=== PATIENT | male | born 1955 | race Two or more races ===

== ENCOUNTER 2019-07-26 09:59 | Inpatient (IN) | payer MEDICARE, OTHER ==
[2019-07-26 11:00] VITALS: BMI 25.7
--- NOTE | 2019-07-26 11:42 | HP ---
CIWA Score Nausea/Vomitin Muscle Tremors: 4-Moderate,w/Arms Extend Anxiety: 3 Agitation: 1-Slight > Activity Paroxysmal Sweats: No Perspiration Orientation: 1-Uncertain about Date Tacttile Disturbances: 1-Very Mild Itch/Numbness Auditory Disturbances: 1-Very Mild Visual Disturbances: 1-Very Mild Sensitivity Headache: 2-Mild CIWA-Ar Total Score: 16 - Admission Criteria OASAS Guidelines: Admission for Medically Managed Detox: Requires at least one of the followin. CIWA greater than 12 2. Seizures within the past 24 hours 3. Delirium tremens within the past 24 hours 4. Hallucinations within the past 24 hours 5. Acute intervention needed for co occurring medical disorder 6. Acute intervention needed for co occurring psychiatric disorder 7. Severe withdrawal that cannot be handled at a lower level of care (continued vomiting, continued diarrhea, abnormal vital signs) requiring intravenous medication and/or fluids 8. Patient presents the following: CIWA greater than 12 Admission Criteria Met: Admission criteria met Admitting History and Physical - Admission History Source: Patient - Past Medical History Cardiovascular: Yes: HTN, Hyperlipdemia Renal/: Yes: BPH Psych: Yes: Addictions, Depression - Past Surgical History Past Surgical History: Yes: Hernia Repair - Smoking History Smoking history: Current every day smoker Have you smoked in the past 12 months: Yes Aproximately how many cigarettes per day: 10 - Alcohol/Substance Use Hx Alcohol Use: Yes History of Substance Use: reports: Heroin - Social History Usual Living Arrangement: Yes: Alone ADL: Support Services Admission ROS S - HPI Chief Complaint: I can't handle the drinking anymore, I want to stop Allergies/Adverse Reactions: Allergies Allergy/AdvReac Type Severity Reaction Status Date / Time fish derived [Fish derived] Allergy Mild Hives Verified 07/26/19 10:52 [place] Allergy Mild Uncoded 09/20/11 20:41 History of Present Illness: 64 yo gentleman here for detox from alcohol and opiates - noted patient on suboxone program which he has been on for over a year - he states he did not rock picker his Rx two days ago - states he last used suboxone six days ago - was using heroin instead - will put him back on suboxone starting tomorrow and detox off alcohol. Denies overdose but has history of alcohol related seizures and black outs. He is on disability for depression - no meds currently and has not seen psych for over a year - states he does not want/need to see psych while here but aware he can request to if he changes his mind - not feeling suicidal. Lives alone in apartment. No emergency room visits recently. Starts drinking first thing when he wakes up, gets shakey when he tries to stop. Last time here in 2011 - states he did well for several years but relapsed about two years ago - was recommended by his program to come in for detox. [place]: Others' Prescriptions Patient Name: Josh Gibson Date: 1955 Address: [address] [place] [address] Sex: Female Rx Written Rx Dispensed Drug Quantity Days Supply Prescriber Name 07/09/2019 07/11/2019 buprenorphine-naloxone 8-2 mg sl film 42 14 Flores Em MD 06/24/2019 06/24/2019 buprenorphine-naloxone 8-2 mg sl film 42 14 Flores Em MD 06/16/2019 06/16/2019 buprenorphine-naloxone 8-2 mg sl film 21 7 Flores Em MD 05/30/2019 06/03/2019 buprenorphine-naloxone 8-2 mg sl film 45 15 Diana Perez MD 05/22/2019 05/22/2019 buprenorphine-naloxone 8-2 mg sl film 45 15 Flores Em MD 05/08/2019 05/08/2019 buprenorphine-naloxone 8-2 mg sl film 45 15 Diana Perez MD 04/22/2019 04/22/2019 buprenorphine-naloxone 8-2 mg sl film 45 15 Diana Perez MD 04/03/2019 04/05/2019 buprenorphine-naloxone 8-2 mg sl film 45 15 Flores Em MD 03/21/2019 03/24/2019 buprenorphine-naloxone 8-2 mg sl film 45 15 Flores Em MD 02/20/2019 02/24/2019 buprenorphine-naloxone 8-2 mg sl film 90 30 Flores Em MD 01/27/2019 01/27/2019 buprenorphine-naloxone 8-2 mg sl film 90 30 Flores Em MD 12/20/2018 12/27/2018 buprenorphine-naloxone 8-2 mg sl film 90 30 Flores Em L MD 10/28/2018 11/29/2018 buprenorphine-naloxone 8-2 mg sl film 90 30 [place]Flores MD 10/28/2018 11/02/2018 buprenorphine-naloxone 8-2 mg sl film 90 30 [place]ores MD 10/03/2018 10/04/2018 suboxone 8 mg-2 mg sl film 90 30 [place]ores MD 09/06/2018 09/06/2018 suboxone 8 mg-2 mg sl film 90 30 [place]ores MD 09/04/2018 09/04/2018 suboxone 8 mg-2 mg sl film 5 2 [place]ores MD 08/28/2018 08/28/2018 suboxone 8 mg-2 mg sl film 20 7 [place]Flores MD 07/04/2018 07/31/2018 suboxone 8 mg-2 mg sl film 90 30 RingstadFlores MD - Ebola screening Have you traveled outside of the country in the last 21 days: No (N) Have you had contact with anyone from an Ebola affected area: No Do you have a fever: No - Review of Systems Constitutional: Loss of Appetite, Malaise, Changes in sleep, Weakness EENT: reports: Blurred Vision Respiratory: reports: No Symptoms reported Cardiac: reports: No Symptoms Reported GI: reports: Nausea, Poor Appetite, Abdominal cramping : reports: Frequency Musculoskeletal: reports: Back Pain, Muscle Pain Integumentary: reports: Dryness Neuro: reports: Headache, Numbness, Tremors, Weakness Endocrine: reports: No Symptoms Reported Hematology: reports: No Symptoms Reported Psychiatric: reports: Judgement Intact, Mood/Affect Appropiate, Orientated x3, Anxious Other Systems: Reviewed and Negative Patient History - Patient Medical History Hx Asthma: No Hx Chronic Obstructive Pulmonary Disease (COPD): No Hx Cancer: No Hx Cardiac Disorders: No Hx Congestive Heart Failure: No Hx Hypertension: Yes (on meds) Hx Hypercholesterolemia: Yes (on meds) Hx Pacemaker: No HX Cerebrovascular Accident: No Hx Seizures: Yes (Pt has a hx of etoh/drug related seizures. Last 2010) Hx Diabetes: No Hx Gastrointestinal Disorders: No Hx Liver Disease: Yes (hep c treated) Hx Genitourinary Disorders: Yes (BPH) Hx Sexually Transmitted Disorders: No Hx Renal Disease (ESRD): No Hx Thyroid Disease: No Hx Human Immunodeficiency Virus (HIV): No Hx Hepatitis C: Yes (treated years ago with interferon) Hx Depression: Yes (ANXIETY AND DEPRESSION, hospitalized years ago) Hx Suicide Attempt: No Hx Bipolar Disorder: No Hx Schizophrenia: No - Patient Surgical History Past Surgical History: Yes Hx Neurologic Surgery: No Hx Cataract Extraction: No Hx Cardiac Surgery: No Hx Lung Surgery: No Hx Breast Surgery: No Hx Breast Biopsy: No Hx Abdominal Surgery: No Hx Appendectomy: No Hx Cholecystectomy: No Hx Genitourinary Surgery: No Hx Section: No Hx Orthopedic Surgery: No Other Surgical History: R inguinal hernia repair in 2005 Anesthesia Reaction: No - PPD History Previous Implant?: Yes Documented Results: Negative w/proof Implanted On Prior [facility] Admission?: Yes Date: 09/20/11 PPD to be Administered?: Yes - Reproductive History Patient is a Female of Child Bearing Age (11 -55 yrs old): No - Smoking Cessation Smoking history: Current every day smoker Have you smoked in the past 12 months: Yes Aproximately how many cigarettes per day: 10 Hx Chewing Tobacco Use: No Initiated information on smoking cessation: Yes 'Breaking Loose' booklet given: 07/26/19 (give on floor) - Substance & Tx. History Hx Alcohol Use: Yes Hx Substance Use: Yes Substance Use Type: Alcohol, Opiates Hx Substance Use Treatment: Yes (detox, suboxone program) - Substances abused Alcohol Substance route: Oral Frequency: Daily Amount used: 1.5 pint of bacardi mixed with 1 pint vodka Age of first use: 25 Date of last use: 07/25/19 Heroin Substance route: Inhalation Frequency: Daily Amount used: 1 bundle (10 bags) daily Age of first use: 25 Date of last use: 07/25/19 Admission Physical Exam [facility] - Vital Signs Vital Signs: Vital Signs - 24 hr 07/26/19 10:46 Temperature 97.4 F L Pulse Rate 60 Respiratory 18 Rate Blood Pressure 140/97 - Physical General Appearance: Yes: Nourished, Appropriately Dressed, Moderate Distress, Tremorous, Anxious HEENTM: Yes: EOMI, Hearing grossly Normal, Normocephalic, Normal Voice, Pharynx Normal, Other (upper and lower dentures) Respiratory: Yes: Normal Breath Sounds, No Respiratory Distress Neck: Yes: No masses,lesions,Nodules, Supple Breast: Yes: Breast Exam Deferred Cardiology: Yes: Regular Rhythm, Regular Rate Abdominal: Yes: Soft Genitourinary: Yes: Frequency, Nocturia Back: Yes: Normal Inspection Musculoskeletal: Yes: Gait Steady, Back pain Extremities: Yes: Normal Inspection, Normal Range of Motion, Tremors Neurological: Yes: Fully Oriented, Alert, Normal Mood/Affect, Normal Response, Numbness Integumentary: Yes: Normal Color, Dry, Warm Lymphatic: Yes: Within Normal Limits - Diagnostic (1) Alcohol dependence with withdrawal, uncomplicated Current Visit: Yes Status: Chronic (2) Opioid dependence, uncomplicated Current Visit: Yes Status: Chronic Comment: on suboxone 8mg tid with Positive Directions (3) Hypercholesterolemia Current Visit: Yes Status: Chronic (4) BPH (benign prostatic hyperplasia) Current Visit: Yes Status: Chronic Qualifiers: Lower urinary tract symptom presence: symptoms present Lower urinary tract symptom detail: nocturia Qualified Code(s): N40.1 - Benign prostatic hyperplasia with lower urinary tract symptoms; R35.1 - Nocturia (5) Hepatitis C virus infection cured after antiviral drug therapy Current Visit: Yes Status: Chronic (6) Nicotine dependence Current Visit: Yes Status: Acute Qualifiers: Nicotine product type: cigarettes Substance use status: uncomplicated Qualified Code(s): F17.210 - Nicotine dependence, cigarettes, uncomplicated (7) HTN (hypertension) Current Visit: Yes Status: Chronic Qualifiers: Hypertension type: essential hypertension Qualified Code(s): I10 - Essential (primary) hypertension (8) History of seizure Current Visit: Yes Status: Chronic Cleared for Admission S - Detox or Rehab [facility] Level of Care: Medically Managed Detox Regimen/Protocol: Librium Breathalyzer - Breathalyzer Breathalyzer: 0 Urine Drug Screen - Test Device Lot number: [id number] Expiration date: 03/05/21 - Control Is test valid?: Yes - Results Drug screen NEGATIVE: No Urine drug screen results: FEN-Fentanyl, MOP-Opiates Inpatient Rehab Admission - Rehab Decision to Admit Inpatient rehab admission?: No
[2019-07-26] MEDS ORDERED: MAGNESIUM CITRATE 300 ML BOTTLE PO PRN (12:04)
[2019-07-26] MEDS ORDERED: METHOCARBAMOL 500 MG TABLET PO PRN (12:04)
[2019-07-26] MEDS ORDERED: MAGNESIUM HYDROX 2400MG/30ML ORAL SUSPENSION 30 ML CUP PO PRN (12:04)
[2019-07-26] MEDS ORDERED: MENTHOL/PHENOL 1 EACH UD MM PRN (12:04)
[2019-07-26] MEDS ORDERED: BISMUTH SUBSALICYLATE 524 MG/30 ML UD PO PRN (12:04)
[2019-07-26] MEDS ORDERED: hydrOXYzine PAMOATE 25 MG CAPSULE (FP) PO PRN (12:04)
[2019-07-26] MEDS ORDERED: chlordiazePOXIDE HCL 25 MG CAPSULE PO ONE (12:04)
[2019-07-26] MEDS ORDERED: ACETAMINOPHEN 325 MG TABLET (FP) PO PRN ×2 (12:04)
[2019-07-26] MEDS ORDERED: MAG HYDROX/AL HYDROX/SIMETH 30 ML UNIT-DOSE CUP PO PRN (12:04)
[2019-07-26] MEDS ORDERED: chlordiazePOXIDE HCL 25 MG CAPSULE PO PRN (12:04)
[2019-07-26] MEDS ORDERED: IBUPROFEN 400 MG TABLET (FP) PO PRN (12:04)
[2019-07-26] MEDS ORDERED: LISINOPRIL 20 MG TABLET (FP) PO SCH (12:15)
[2019-07-26] MEDS ORDERED: CHLORTHALIDONE 25 MG TABLET PO SCH (12:15)
[2019-07-26] MEDS: TAMSULOSIN HCL 0.4 MG CAP PO SCH (13:37)
[2019-07-26] MEDS: ASPIRIN 81 MG CHEWABLE TABLETS PO SCH (13:37)
[2019-07-26] MEDS: NICOTINE 21 MG/24 HOURS TOPICAL PATCH TD SCH (13:42)
[2019-07-26] MEDS: chlordiazePOXIDE HCL 25 MG CAPSULE PO SCH ×2 (18:23→22:20)
[2019-07-26] MEDS: BUPRENORPHINE/NALOXONE 8 MG/2 MG FILM PACKET SL SCH (18:26)
[2019-07-26] MEDS: MELATONIN 5 MG TABLETS PO PRN (22:18)
[2019-07-26] MEDS: THIAMINE HCL 100 MG TABLET (FP) PO SCH (22:19)
[2019-07-26] MEDS: ATORVASTATIN CA 40 MG TABLET (FP) PO SCH (22:19)
[2019-07-27] MEDS: chlordiazePOXIDE HCL 25 MG CAPSULE PO SCH ×4 (05:52→22:25)
[2019-07-27] MEDS: BUPRENORPHINE/NALOXONE 8 MG/2 MG FILM PACKET SL SCH ×3 (06:24→17:57)
--- NOTE | 2019-07-27 09:34 | PN ---
S CIWA - CIWA Score Nausea/Vomitin-Mild Nausea/No Vomiting Muscle Tremors: 4-Moderate,w/Arms Extend Anxiety: 3 Agitation: 2 Paroxysmal Sweats: 2 Orientation: 0-Oriented Tacttile Disturbances: 0-None Auditory Disturbances: 1-Very Mild Visual Disturbances: 0-None Headache: 2-Mild CIWA-Ar Total Score: 15 S Progress Note (SOAP) Subjective: 64 years old male admitted on 07/26/19 for alcohol withdrawal sx management treating with librium detox regimen received suboxone 8-2mg sl today feeling better long history of hypertension taking hygroton 25mg po daily bp elevation upon admission resume antihypertensive medications lisinopril 20 mg po od increases lisinopril to 20 mg po bid and continues pb monitoring Objective: 07/27/19 09:43 Vital Signs Temperature 96.8 F L 07/27/19 09:09 Pulse Rate 67 07/27/19 09:09 Respiratory Rate 16 07/27/19 09:09 Blood Pressure 165/101 H 07/27/19 09:09 O2 Sat by Pulse Oximetry (%) 07/27/19 09:46 lab pending 07/27/19 09:46 bp elevation lisinopril 20 mg po bid Assessment: 07/27/19 09:47 Vital Signs Temperature 96.8 F L 07/27/19 09:09 Pulse Rate 67 07/27/19 09:09 Respiratory Rate 16 07/27/19 09:09 Blood Pressure 165/101 H 07/27/19 09:09 O2 Sat by Pulse Oximetry (%) Plan: librium regimen
[2019-07-27] MEDS ORDERED: CHLORTHALIDONE 25 MG TABLET PO SCH ×2 (09:39→10:00)
[2019-07-27] MEDS: TAMSULOSIN HCL 0.4 MG CAP PO SCH (10:13)
[2019-07-27] MEDS: ASPIRIN 81 MG CHEWABLE TABLETS PO SCH (10:13)
[2019-07-27] MEDS: LISINOPRIL 20 MG TABLET (FP) PO SCH ×2 (10:13→22:25)
[2019-07-27] MEDS: PRENATAL VITAMINS W/ FOLIC ACID TABLET (FP) PO SCH (10:13)
[2019-07-27] MEDS: NICOTINE 21 MG/24 HOURS TOPICAL PATCH TD SCH (10:14)
[2019-07-27 10:41] LABS: HEMATOCRIT 43.8 % (35.4-49); HEMOGLOBIN 14.8 GM/dL (11.7-16.9); MCHC 33.8 g/dl (32.0-35.9); MEAN CELL VOLUME 94.6 fl (80-96); MEAN PLT VOLUME 8.7 fl (7.5-11.1); PLATELET COUNT 149 K/MM3 (134-434); RBC 4.63 M/mm3 (4.00-5.60); WHITE BLOOD COUNT 5.1 K/mm3 (4.0-10.0)
[2019-07-27 10:52] LABS: ALBUMIN 3.9 g/dl (3.4-5.0); BILIRUBIN,TOTAL 0.8 mg/dL (0.2-1); BLOOD UREA NITROGEN 11.9 mg/dL (7-18); CALCIUM 9.6 mg/dL (8.5-10.1); CREATININE 0.8 mg/dL (0.55-1.3); POTASSIUM 4.1 mmol/L (3.5-5.1); TOT PROT 7.8 g/dl (6.4-8.2)
[2019-07-27] MEDS: CHLORTHALIDONE 25 MG TABLET PO SCH (11:03)
--- NOTE | 2019-07-27 18:46 | EKG ---
Test Reason : Blood Pressure : / mmHG Vent. Rate : 054 BPM Atrial Rate : 054 BPM P-R Int : 148 ms QRS Dur : 076 ms QT Int : 480 ms P-R-T Axes : 042 -03 006 degrees QTc Int : 455 ms SINUS BRADYCARDIA POSSIBLE LEFT ATRIAL ENLARGEMENT BORDERLINE ECG NO PREVIOUS ECGS AVAILABLE Confirmed by MARIAMA HUGHES MD ([id number]) on 07/27/2019 6:46:00 PM Referred By: Confirmed By:MARIAMA HUGHES MD
[2019-07-27] MEDS: ATORVASTATIN CA 40 MG TABLET (FP) PO SCH (22:25)
[2019-07-27] MEDS: THIAMINE HCL 100 MG TABLET (FP) PO SCH (22:25)
[2019-07-27] MEDS: MELATONIN 5 MG TABLETS PO PRN (22:26)
[2019-07-28] MEDS: BUPRENORPHINE/NALOXONE 8 MG/2 MG FILM PACKET SL SCH ×2 (02:19→10:45)
[2019-07-28] MEDS: chlordiazePOXIDE HCL 25 MG CAPSULE PO SCH ×2 (05:20→10:08)
[2019-07-28] MEDS ORDERED: BUPRENORPHINE/NALOXONE 8 MG/2 MG FILM PACKET SL SCH ×3 (09:39→14:00)
[2019-07-28] MEDS ORDERED: BUPRENORPHINE/NALOXONE 8 MG/2 MG FILM PACKET SL ONE (10:00)
[2019-07-28] MEDS: LISINOPRIL 20 MG TABLET (FP) PO SCH (10:08)
[2019-07-28] MEDS: PRENATAL VITAMINS W/ FOLIC ACID TABLET (FP) PO SCH (10:08)
[2019-07-28] MEDS: CHLORTHALIDONE 25 MG TABLET PO SCH (10:08)
[2019-07-28] MEDS: TAMSULOSIN HCL 0.4 MG CAP PO SCH (10:08)
[2019-07-28] MEDS: NICOTINE 21 MG/24 HOURS TOPICAL PATCH TD SCH (10:08)
[2019-07-28] MEDS: ASPIRIN 81 MG CHEWABLE TABLETS PO SCH (10:08)
--- NOTE | 2019-07-28 10:33 | PN ---
S CIWA - CIWA Score Nausea/Vomitin-Mild Nausea/No Vomiting Muscle Tremors: 2 Anxiety: 3 Agitation: 2 Paroxysmal Sweats: 2 Orientation: 1-Uncertain about Date (date of week) Tacttile Disturbances: 1-Very Mild Itch/Numbness Auditory Disturbances: 0-None Visual Disturbances: 0-None Headache: 1-Very Mild CIWA-Ar Total Score: 13 BHS Progress Note (SOAP) Subjective: 64 years old male admitted on 07/26/19 for alcohol withdrawal sx management treating with librium detox regimen c/o suboxone standing schedule interrupted sleep change suboxone schedule to q8h begin 0600am Objective: 07/28/19 10:32 Vital Signs Temperature 97.3 F L 07/28/19 09:17 Pulse Rate 78 07/28/19 09:17 Respiratory Rate 18 07/28/19 09:17 Blood Pressure 104/64 07/28/19 09:17 O2 Sat by Pulse Oximetry (%) Laboratory Last Values WBC 5.1 K/mm3 (4.0-10.0) 07/27/19 07:35 RBC 4.63 M/mm3 (4.00-5.60) 07/27/19 07:35 Hgb 14.8 GM/dL (11.7-16.9) 07/27/19 07:35 Hct 43.8 % (35.4-49) D 07/27/19 07:35 MCV 94.6 fl (80-96) 07/27/19 07:35 MCH 32.0 pg (25.7-33.7) 07/27/19 07:35 MCHC 33.8 g/dl (32.0-35.9) 07/27/19 07:35 RDW 14.0 % (11.9-15.9) 07/27/19 07:35 Plt Count 149 K/MM3 (134-434) 07/27/19 07:35 MPV 8.7 fl (7.5-11.1) 07/27/19 07:35 Sodium 138 mmol/L (136-145) 07/27/19 07:35 Potassium 4.1 mmol/L (3.5-5.1) 07/27/19 07:35 Chloride 102 mmol/L (98-107) 07/27/19 07:35 Carbon Dioxide 31 mmol/L (21-32) 07/27/19 07:35 Anion Gap 6 MMOL/L (8-16) L 07/27/19 07:35 BUN 11.9 mg/dL (7-18) 07/27/19 07:35 Creatinine 0.8 mg/dL (0.55-1.3) 07/27/19 07:35 Est GFR (CKD-EPI)AfAm 110.19 07/27/19 07:35 Est GFR (CKD-EPI)NonAf 95.07 07/27/19 07:35 Random Glucose 110 mg/dL (74-106) H 07/27/19 07:35 Calcium 9.6 mg/dL (8.5-10.1) 07/27/19 07:35 Total Bilirubin 0.8 mg/dL (0.2-1) 07/27/19 07:35 AST 19 U/L (15-37) 07/27/19 07:35 ALT 24 U/L (13-61) 07/27/19 07:35 Alkaline Phosphatase 86 U/L (45-117) 07/27/19 07:35 Total Protein 7.8 g/dl (6.4-8.2) 07/27/19 07:35 Albumin 3.9 g/dl (3.4-5.0) 07/27/19 07:35 RPR Titer Nonreactive (NONREACTIVE) 07/27/19 07:35 lab noted Assessment: 07/28/19 10:32 alcohol withdrawal Plan: librium regimen
[2019-07-28 13:06] VITALS: BP 114/70; PULSE 65; TEMP 97.5
--- NOTE | 2019-07-28 15:51 | DS ---
[facility] Detox Discharge Summary Admission Date: 07/26/19 Discharge Date: 07/28/19 - History Present History: Alcohol Dependence Additional Comments: 64 years old male admitted on 07/26/19 for alcohol withdrawal sx management treated with librium detox regimen patient insists to leave the detox unit that his qa automation engineer disappeared and the patient prefers to return home to care for his two dogs patient is alert oriented x 3 speech clearly coherently ambulating steady gait Pertinent Past History: case discussed with the nurse against medical advice is appropriated patient will return to suboxone provider for behavior and psychosocial therapies - Physical Exam Results Vital Signs: Vital Signs Temperature 97.5 F L 07/28/19 13:06 Pulse Rate 65 07/28/19 13:06 Respiratory Rate 18 07/28/19 13:06 Blood Pressure 114/70 07/28/19 13:06 O2 Sat by Pulse Oximetry (%) Pertinent Admission Physical Exam Findings: alcohol withdrawal Laboratory Last Values WBC 5.1 K/mm3 (4.0-10.0) 07/27/19 07:35 RBC 4.63 M/mm3 (4.00-5.60) 07/27/19 07:35 Hgb 14.8 GM/dL (11.7-16.9) 07/27/19 07:35 Hct 43.8 % (35.4-49) D 07/27/19 07:35 MCV 94.6 fl (80-96) 07/27/19 07:35 MCH 32.0 pg (25.7-33.7) 07/27/19 07:35 MCHC 33.8 g/dl (32.0-35.9) 07/27/19 07:35 RDW 14.0 % (11.9-15.9) 07/27/19 07:35 Plt Count 149 K/MM3 (134-434) 07/27/19 07:35 MPV 8.7 fl (7.5-11.1) 07/27/19 07:35 Sodium 138 mmol/L (136-145) 07/27/19 07:35 Potassium 4.1 mmol/L (3.5-5.1) 07/27/19 07:35 Chloride 102 mmol/L (98-107) 07/27/19 07:35 Carbon Dioxide 31 mmol/L (21-32) 07/27/19 07:35 Anion Gap 6 MMOL/L (8-16) L 07/27/19 07:35 BUN 11.9 mg/dL (7-18) 07/27/19 07:35 Creatinine 0.8 mg/dL (0.55-1.3) 07/27/19 07:35 Est GFR (CKD-EPI)AfAm 110.19 07/27/19 07:35 Est GFR (CKD-EPI)NonAf 95.07 07/27/19 07:35 Random Glucose 110 mg/dL (74-106) H 07/27/19 07:35 Calcium 9.6 mg/dL (8.5-10.1) 07/27/19 07:35 Total Bilirubin 0.8 mg/dL (0.2-1) 07/27/19 07:35 AST 19 U/L (15-37) 07/27/19 07:35 ALT 24 U/L (13-61) 07/27/19 07:35 Alkaline Phosphatase 86 U/L (45-117) 07/27/19 07:35 Total Protein 7.8 g/dl (6.4-8.2) 07/27/19 07:35 Albumin 3.9 g/dl (3.4-5.0) 07/27/19 07:35 RPR Titer Nonreactive (NONREACTIVE) 07/27/19 07:35 lab noted - Treatment Hospital Course: Detox Protocol Followed, Discharged Condition Good Patient has Accepted a Re[facility]erral [facility] - Medication Discharge Medications: Ambulatory Orders Aspirin [ASA -] 81 mg PO DAILY 07/26/19 Atorvastatin Ca [Lipitor] 40 mg PO HS 07/26/19 Buprenorphine/Naloxone [Suboxone 8Mg/2Mg Sl Film -] 1 each SL Q8H 07/26/19 Chlorthalidone [Hygroton -] 25 mg PO DAILY 07/26/19 Lisinopril 20 mg PO DAILY 07/26/19 Tamsulosin HCl [Flomax -] 0.4 mg PO DAILY 07/26/19 - Diagnosis (1) Nicotine dependence Current Visit: Yes Status: Acute Qualifiers: Nicotine product type: cigarettes Substance use status: in withdrawal Qualified Code(s): F17.213 - Nicotine dependence, cigarettes, with withdrawal (2) Alcohol dependence with withdrawal, uncomplicated Current Visit: Yes Status: Acute (3) BPH (benign prostatic hyperplasia) Current Visit: Yes Status: Chronic Qualifiers: Lower urinary tract symptom presence: symptoms present Lower urinary tract symptom detail: nocturia Qualified Code(s): N40.1 - Benign prostatic hyperplasia with lower urinary tract symptoms; R35.1 - Nocturia (4) HTN (hypertension) Current Visit: Yes Status: Chronic Qualifiers: Hypertension type: essential hypertension Qualified Code(s): I10 - Essential (primary) hypertension (5) Hepatitis C virus infection cured after antiviral drug therapy Current Visit: Yes Status: Chronic (6) Hypercholesterolemia Current Visit: Yes Status: Chronic - AMA Did Patient Leave Against Medical Advice: Yes
[2019-07-29] MEDS ORDERED: chlordiazePOXIDE HCL 10 MG CAPSULE PO PRN
[2019-07-29] MEDS ORDERED: chlordiazePOXIDE HCL 10 MG CAPSULE PO SCH (05:00)
[2019-07-30] MEDS ORDERED: chlordiazePOXIDE HCL 10 MG CAPSULE PO SCH (05:00)
[2019-07-31] MEDS ORDERED: chlordiazePOXIDE HCL 10 MG CAPSULE PO ONE (05:00)
== END 2019-07-28 15:46 | disposition left against medical advice (07) | DRG 894 ==
LOC: YASAS 09:59 → Y3N 12:22
PROVIDERS: ADMIT Allergy & Immunology; ATTEND Allergy & Immunology
PROC: HZ2ZZZZ Detoxification Services for Substance Abuse Treatment (ICD-10-PCS; principal; 2019-07-26)
DX: F11.23 Opioid dependence with withdrawal (principal); F10.230 Alcohol dependence with withdrawal, uncomplicated; F17.213 Nicotine dependence, cigarettes, with withdrawal; I10 Essential (primary) hypertension; N40.0 Benign prostatic hyperplasia without lower urinary tract symptoms; E78.5 Hyperlipidemia, unspecified; Z86.19 Personal history of other infectious and parasitic diseases; Z91.013 Allergy to seafood; Z91.018 Allergy to other foods; Z86.69 Personal history of other diseases of the nervous system and sense organs
CPT/HCPCS: 36415; 80053; 85027; 86593; 93005; 93010

== ENCOUNTER 2019-10-24 08:02 | Inpatient (IN) | payer MEDICARE, OTHER ==
--- NOTE | 2019-10-24 08:56 | BHS.RME ---
Substance Use & Tx History - Substance Use History Alcohol Substance amount: 2.5 pints vodka Frequency of use: Daily Substance route: Oral Date of Last Use: 10/23/19 (6AM) Opiates (Heroin) Substance amount: 4-5 bags Frequency of use: Daily Substance route: Inhalation (ex: sniffing or snorting) Date of Last Use: 10/24/19 Nicotine Substance amount: 5-6 ciggs Frequency of use: Daily Substance route: Smoking Date of Last Use: 10/24/19 Physical/Psych/Mental Status - Behavior General Behavior: Increased activity (restlessness, agitation) Eye Contact: Normal - Cooperativeness Cooperativeness: Cooperative - Thinking Thought Processes: Tight, Logical, Goal Directed Thought content: Future oriented - Physical Health Problems Is patient presently having any pain?: No Does patient presently have any injuries (include location): No Does patient currently have a fever: No Is patient : No COWS - Scale Resting Pulse: 1= MD 81-100 Sweatin=Flushed/Facial Moisture Restless Observation: 1= Difficult to Sit Still Pupil Size: 1= Pupils >than Normal Bone or Joint Aches: 1= Mild Discomfort Runny Nose/ Eye Tearin= Runny Nose/Eyes GI Upset > 30mins: 3= Vomiting/Diarrhea Tremor Observation: 4= Gross Tremor/Twitching Yawning Observation: 1= 1-2x During Session Anxiety or Irritability: 2=Irritable/Anxious Goose Flesh Skin: 0=Smooth Skin COWS Score: 18 CIWA Nausea/Vomitin-No Nausea/No Vomiting Muscle Tremors: 4-Moderate,w/Arms Extend Anxiety: 6 Agitation: 1-Slight > Activity Paroxysmal Sweats: 4-Forehead w/Sweat Beads Orientation: 0-Oriented Tacttile Disturbances: 0-None Auditory Disturbances: 0-None Visual Disturbances: 1-Very Mild Sensitivity Headache: 2-Mild CIWA-Ar Total Score: 18
[2019-10-24 09:04] VITALS: BMI 26.0
--- NOTE | 2019-10-24 10:08 | HP ---
COWS - Scale Resting Pulse: 1= AR 81-100 Sweatin=Flushed/Facial Moisture Restless Observation: 1= Difficult to Sit Still Pupil Size: 1= Pupils >than Normal Bone or Joint Aches: 1= Mild Discomfort Runny Nose/ Eye Tearin= Runny Nose/Eyes GI Upset > 30mins: 3= Vomiting/Diarrhea Tremor Observation: 4= Gross Tremor/Twitching Yawning Observation: 1= 1-2x During Session Anxiety or Irritability: 2=Irritable/Anxious Goose Flesh Skin: 0=Smooth Skin COWS Score: 18 CIWA Score Nausea/Vomitin-No Nausea/No Vomiting Muscle Tremors: 4-Moderate,w/Arms Extend Anxiety: 6 Agitation: 1-Slight > Activity Paroxysmal Sweats: 4-Forehead w/Sweat Beads Orientation: 0-Oriented Tacttile Disturbances: 0-None Auditory Disturbances: 0-None Visual Disturbances: 1-Very Mild Sensitivity Headache: 2-Mild CIWA-Ar Total Score: 18 - Admission Criteria OASAS Guidelines: Admission for Medically Managed Detox: Requires at least one of the followin. CIWA greater than 12 2. Seizures within the past 24 hours 3. Delirium tremens within the past 24 hours 4. Hallucinations within the past 24 hours 5. Acute intervention needed for co occurring medical disorder 6. Acute intervention needed for co occurring psychiatric disorder 7. Severe withdrawal that cannot be handled at a lower level of care (continued vomiting, continued diarrhea, abnormal vital signs) requiring intravenous medication and/or fluids 8. Admitting History and Physical - Admission Chief Complaint: "I just want to stay clean and go back to my job. I was laid off because of the [place] virus." History of Present Illness: 64 year old male with history of alcohold dependence and opioid dependence. 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 He relapsed after 2 weeks. He is also anxious due to his job loss from being laid off due to the coronavirus. He was also a patient at [facility] on suboxone but said when his car got repossessed his suboxone was in the car. He states he has not taken his suboxone for 2 days. Alcohol: 2.5 pints vodka daily, started at age 23 and last used 10/23/19 at 6AM, so out of his system and breathylyzer negative. 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 Heroin 4-5 bags of heroin intranasally, started at age 28 and last used this morning at 6AM. PMH: HTN Psurg: None Psych: None He is not homeless but has poor recovery environment and is at high risk to relapse due to social circumstances. Urine Tox : has suboxone but residual most likely, but also positive for fentanyl and opioids. He meets criteria for admission to detox. History Source: Patient Limitations to Obtaining History: No Limitations - Past Medical History Cardiovascular: Yes: HTN, Hyperlipdemia Renal/: Yes: BPH Psych: Yes: Addictions, Depression - Past Surgical History Past Surgical History: Yes: Hernia Repair - Smoking History Smoking history: Current every day smoker Have you smoked in the past 12 months: Yes Aproximately how many cigarettes per day: 6 - Alcohol/Substance Use Hx Alcohol Use: Yes (2.5 pints vodka) History of Substance Use: reports: Heroin - Social History Usual Living Arrangement: Yes: Alone Do you think of yourself as: Straight/Heterosexual ADL: Independent Occupation: unemployed, warehouse History of Recent Travel: No Admission [facility] Allergies/Adverse Reactions: Allergies Allergy/AdvReac Type Severity Reaction Status Date / Time fish derived [Fish derived] Allergy Mild Hives Verified 10/24/19 09:12 [place] Allergy Mild Uncoded 10/24/19 09:12 Exam Limitations: No Limitations - Ebola screening Have you traveled outside of the country in the last 21 days: No Have you had contact with anyone from an Ebola affected area: No Have you been sick,other than usual withdrawal symptoms: No Do you have a fever: No - Review of Systems Constitutional: Chills, Loss of Appetite, Unintentional Wgt. Loss EENT: reports: No Symptoms Reported Respiratory: reports: No Symptoms reported Cardiac: reports: No Symptoms Reported GI: reports: No Symptoms Reported, Nausea, Abdominal cramping : reports: No Symptoms Reported Musculoskeletal: reports: No Symptoms Reported Integumentary: reports: No Symptoms Reported Neuro: reports: No Symptoms reported Endocrine: reports: No Symptoms Reported Hematology: reports: No Symptoms Reported Psychiatric: reports: Judgement Intact, Orientated x3, Agitated, Anxious, Depressed Other Systems: Reviewed and Negative Patient History - Patient Medical History Hx Asthma: No Hx Chronic Obstructive Pulmonary Disease (COPD): No Hx Cancer: No Hx Cardiac Disorders: No Hx Congestive Heart Failure: No Hx Hypertension: Yes (HTN- ON MEDS) Hx Hypercholesterolemia: Yes (on meds) Hx Pacemaker: No HX Cerebrovascular Accident: No Hx Seizures: Yes (2010) Hx Diabetes: No Hx Gastrointestinal Disorders: No Hx Liver Disease: Yes (hep c treated) Hx Genitourinary Disorders: No Hx Sexually Transmitted Disorders: No Hx Renal Disease (ESRD): No Hx Thyroid Disease: No Hx Human Immunodeficiency Virus (HIV): No Hx Hepatitis C: Yes (treated years ago with interferon) Hx Depression: No Hx Suicide Attempt: No Hx Bipolar Disorder: No Hx Schizophrenia: No - Patient Surgical History Past Surgical History: Yes Hx Neurologic Surgery: No Hx Cataract Extraction: No Hx Cardiac Surgery: No Hx Lung Surgery: No Hx Breast Surgery: No Hx Breast Biopsy: No Hx Abdominal Surgery: No Hx Appendectomy: No Hx Cholecystectomy: No Hx Genitourinary Surgery: No Hx Section: No Hx Orthopedic Surgery: No Other Surgical History: R inguinal hernia repair in 2005 Anesthesia Reaction: No - PPD History Previous Implant?: Yes Documented Results: Negative w/proof Implanted On Prior [facility] Admission?: Yes Date: 07/28/19 - Smoking Cessation Smoking history: Current every day smoker Have you smoked in the past 12 months: Yes Aproximately how many cigarettes per day: 7 Hx Chewing Tobacco Use: No Initiated information on smoking cessation: Yes 'Breaking Loose' booklet given: 10/24/19 - Substances abused Alcohol Substance route: Oral Frequency: Daily Amount used: Rum- 3pts Age of first use: 29 Date of last use: 10/23/19 Heroin Substance route: Inhalation Frequency: Daily Amount used: bags -5-7 Age of first use: 29 Date of last use: 10/23/19 Admission Physical Exam BHS - Vital Signs Vital Signs: Vital Signs - 24 hr 10/24/19 10/24/19 09:02 09:14 Temperature 97.8 F 97.8 F Pulse Rate 82 82 Respiratory 18 18 Rate Blood Pressure 153/94 153/94 - Physical General Appearance: Yes: Within Normal Limits HEENTM: Yes: EOMI, Hearing grossly Normal, Normal ENT Inspection, Normocephalic, Normal Voice, LAY, Pharynx Normal, Tm's normal Respiratory: Yes: Chest Non-Tender, Lungs Clear, Normal Breath Sounds, No Respiratory Distress, No Accessory Muscle Use Neck: Yes: No masses,lesions,Nodules, Supple, Trachea in good position Breast: Yes: Within Normal Limits Cardiology: Yes: Regular Rhythm, Regular Rate, S1, S2 Abdominal: Yes: Flat, Soft, Increased Bowel Sounds Genitourinary: Yes: Within Normal Limits Back: Yes: Normal Inspection Musculoskeletal: Yes: full range of Motion, Gait Steady, Pelvis Stable Extremities: Yes: Normal Capillary Refill, Normal Inspection, Normal Range of Motion, Non-Tender Neurological: Yes: retail store assistant II-XII NML intact, Fully Oriented, Alert, Motor Strength 5/5, Normal Mood/Affect, Normal Response Integumentary: Yes: Normal Color, Dry, Warm Lymphatic: Yes: Within Normal Limits - Diagnostic (1) Opioid dependence with withdrawal Current Visit: Yes Status: Acute (2) Alcohol dependence with withdrawal, uncomplicated Current Visit: Yes Status: Acute (3) Nicotine dependence Current Visit: Yes Status: Acute Qualifiers: Nicotine product type: cigarettes Substance use status: in withdrawal Qualified Code(s): F17.213 - Nicotine dependence, cigarettes, with withdrawal (4) BPH (benign prostatic hyperplasia) Current Visit: Yes Status: Chronic Qualifiers: Lower urinary tract symptom presence: symptoms present Lower urinary tract symptom detail: nocturia Qualified Code(s): N40.1 - Benign prostatic h yperplasia with lower urinary tract symptoms; R35.1 - Nocturia (5) HTN (hypertension) Current Visit: Yes Status: Chronic Qualifiers: Hypertension type: essential hypertension Qualified Code(s): I10 - Essential (primary) hypertension (6) History of seizure Current Visit: Yes Status: Chronic (7) Hypercholesterolemia Current Visit: No Status: Chronic (8) Hepatitis C virus infection cured after antiviral drug therapy Current Visit: No Status: Chronic Cleared for Admission S - Detox or Rehab [facility] Level of Care: Medically Managed Detox Regimen/Protocol: Methadone/Librium Claeared for Rehab Admission: No Screened but not Admitted - Documentation of Visit Screened but not Admitted: No Breathalyzer - Breathalyzer Breathalyzer: 0 Urine Drug Screen - Test Device Lot number: [id number] Expiration date: 04/05/21 - Control Is test valid?: Yes - Results Drug screen NEGATIVE: No Urine drug screen results: FEN-Fentanyl, MOP-Opiates, BUP-Suboxone Inpatient Rehab Admission - Rehab Decision to Admit Inpatient rehab admission?: No
[2019-10-24] MEDS ORDERED: METHOCARBAMOL 500 MG TABLET PO PRN (10:12)
[2019-10-24] MEDS ORDERED: cloNIDine HCL 0.1 MG TABLET PO PRN (10:12)
[2019-10-24] MEDS ORDERED: MAG HYDROX/AL HYDROX/SIMETH 30 ML UNIT-DOSE CUP PO PRN (10:12)
[2019-10-24] MEDS ORDERED: ONDANSETRON *ODT* 4 MG TABLET SL ONE (10:12)
[2019-10-24] MEDS ORDERED: MAGNESIUM HYDROX 2400MG/30ML ORAL SUSPENSION 30 ML CUP PO PRN (10:12)
[2019-10-24] MEDS ORDERED: IBUPROFEN 400 MG TABLET (FP) PO PRN (10:12)
[2019-10-24] MEDS ORDERED: MAGNESIUM CITRATE 300 ML BOTTLE PO PRN (10:12)
[2019-10-24] MEDS ORDERED: METHADONE HCL 10 MG TABLET (FOR DETOX USE ONLY) PO ONE (10:12)
[2019-10-24] MEDS ORDERED: ACETAMINOPHEN 325 MG TABLET (FP) PO PRN ×2 (10:12)
[2019-10-24] MEDS ORDERED: MENTHOL/PHENOL 1 EACH UD MM PRN (10:12)
[2019-10-24] MEDS ORDERED: NICOTINE POLACRILEX 2 MG GUM BUC PRN (10:12)
[2019-10-24] MEDS ORDERED: BISMUTH SUBSALICYLATE 262 MG/15 ML BTL PO PRN (10:12)
[2019-10-24] MEDS ORDERED: chlordiazePOXIDE HCL 25 MG CAPSULE PO PRN (10:12)
[2019-10-24] MEDS: chlordiazePOXIDE HCL 25 MG CAPSULE PO SCH ×3 (11:05→22:20)
[2019-10-24] MEDS: LISINOPRIL 20 MG TABLET (FP) PO SCH (11:05)
[2019-10-24] MEDS: TAMSULOSIN HCL 0.4 MG CAP PO SCH (11:05)
[2019-10-24] MEDS: PRENATAL VITAMINS W/ FOLIC ACID TABLET (FP) PO SCH (11:09)
[2019-10-24] MEDS: NICOTINE 7 MG/24 HOURS TOPICAL PATCH TD SCH (11:09)
[2019-10-24] MEDS: hydrOXYzine PAMOATE 25 MG CAPSULE (FP) PO SCH ×3 (15:14→22:20)
[2019-10-24 15:45] LABS: HEMATOCRIT 38.8 % (35.4-49); MCH 32.1 pg (25.7-33.7); MCHC 33.5 g/dl (32.0-35.9); MEAN CELL VOLUME 95.6 fl (80-96); MEAN PLT VOLUME 9.3 fl (7.5-11.1); PLATELET COUNT 122 K/MM3 (134-434); RBC 4.06 M/mm3 (4.00-5.60); RDW 12.9 % (11.9-15.9); WHITE BLOOD COUNT 4.1 K/mm3 (4.0-10.0)
[2019-10-24 15:56] LABS: ALBUMIN 3.5 g/dl (3.4-5.0); BILIRUBIN,TOTAL 0.6 mg/dL (0.2-1); BLOOD UREA NITROGEN 17.6 mg/dL (7-18); CALCIUM 8.9 mg/dL (8.5-10.1); CREATININE 0.7 mg/dL (0.55-1.3); POTASSIUM 3.9 mmol/L (3.5-5.1); TOT PROT 7.3 g/dl (6.4-8.2)
[2019-10-24] MEDS: MELATONIN 5 MG TABLETS PO SCH (22:20)
[2019-10-24] MEDS: THIAMINE HCL 100 MG TABLET (FP) PO SCH (22:20)
[2019-10-25] MEDS: hydrOXYzine PAMOATE 25 MG CAPSULE (FP) PO SCH ×5 (05:56→22:06)
[2019-10-25] MEDS: chlordiazePOXIDE HCL 25 MG CAPSULE PO SCH ×4 (05:56→22:06)
[2019-10-25] MEDS ORDERED: METHADONE HCL 5 MG TABLET (FOR DETOX USE ONLY) ONE (09:09)
[2019-10-25] MEDS ORDERED: METHADONE HCL 10 MG TABLET (FOR DETOX USE ONLY) ONE (09:09)
[2019-10-25] MEDS ORDERED: METHADONE (DETOX) 20 MG, METHADONE (DETOX) 5 MG PO ONE (10:00)
--- NOTE | 2019-10-25 10:27 | PN ---
S CIWA - CIWA Score Nausea/Vomitin-No Nausea/No Vomiting Muscle Tremors: None Anxiety: 3 Agitation: 0-Normal Activity Paroxysmal Sweats: 3 Orientation: 0-Oriented Tacttile Disturbances: 0-None Auditory Disturbances: 0-None Visual Disturbances: 0-None Headache: 2-Mild CIWA-Ar Total Score: 8 BHS COWS - Scale Resting Pulse: 0= DC 80 or Below Sweatin= Chills/Flushing Restless Observation: 1= Difficult to Sit Still Pupil Size: 0= Normal to Room Light Bone or Joint Aches: 2= Severe Diffuse Aches Runny Nose/ Eye Tearin= None GI Upset > 30mins: 0= None Tremor Observation of Outstretched Hands: 0= None Yawning Observation: 1= 1-2x During Session Anxiety or Irritability: 2=Irritable/Anxious Goose Flesh Skin: 0=Smooth Skin COWS Score: 7 BHS Progress Note (SOAP) Subjective: c/o sweats, anxiety, headache, and muscle aches. Objective: 10/25/19 10:26 Vital Signs 10/25/19 10/25/19 10/25/19 03:44 06:24 09:02 Temperature 97.5 F L 97.0 F L Pulse Rate 61 67 Respiratory 16 18 16 Rate Blood Pressure 111/74 106/68 O2 Sat by Pulse 95 Oximetry (%) Laboratory Last Values WBC 4.1 K/mm3 (4.0-10.0) 10/24/19 10:15 RBC 4.06 M/mm3 (4.00-5.60) 10/24/19 10:15 Hgb 13.0 GM/dL (11.7-16.9) 10/24/19 10:15 Hct 38.8 % (35.4-49) 10/24/19 10:15 MCV 95.6 fl (80-96) 10/24/19 10:15 MCH 32.1 pg (25.7-33.7) 10/24/19 10:15 MCHC 33.5 g/dl (32.0-35.9) 10/24/19 10:15 RDW 12.9 % (11.9-15.9) 10/24/19 10:15 Plt Count 122 K/MM3 (134-434) L 10/24/19 10:15 MPV 9.3 fl (7.5-11.1) 10/24/19 10:15 Sodium 144 mmol/L (136-145) 10/24/19 10:15 Potassium 3.9 mmol/L (3.5-5.1) 10/24/19 10:15 Chloride 109 mmol/L (98-107) H 10/24/19 10:15 Carbon Dioxide 29 mmol/L (21-32) 10/24/19 10:15 Anion Gap 6 MMOL/L (8-16) L 10/24/19 10:15 BUN 17.6 mg/dL (7-18) 10/24/19 10:15 Creatinine 0.7 mg/dL (0.55-1.3) 10/24/19 10:15 Est GFR (CKD-EPI)AfAm 116.40 10/24/19 10:15 Est GFR (CKD-EPI)NonAf 100.43 10/24/19 10:15 Random Glucose 92 mg/dL (74-106) 10/24/19 10:15 Calcium 8.9 mg/dL (8.5-10.1) 10/24/19 10:15 Total Bilirubin 0.6 mg/dL (0.2-1) 10/24/19 10:15 AST 18 U/L (15-37) 10/24/19 10:15 ALT 21 U/L (13-61) 10/24/19 10:15 Alkaline Phosphatase 111 U/L (45-117) 10/24/19 10:15 Total Protein 7.3 g/dl (6.4-8.2) 10/24/19 10:15 Albumin 3.5 g/dl (3.4-5.0) 10/24/19 10:15 Labs noted. Assessment: 10/25/19 10:26 AOX3, in no acute respiratory distress. Full ROM, ambulating in the unit. Withdrawal symptoms. Plan: continue detox.
[2019-10-25] MEDS: TAMSULOSIN HCL 0.4 MG CAP PO SCH (10:43)
[2019-10-25] MEDS: LISINOPRIL 20 MG TABLET (FP) PO SCH (10:44)
[2019-10-25] MEDS: PRENATAL VITAMINS W/ FOLIC ACID TABLET (FP) PO SCH (10:44)
[2019-10-25] MEDS: NICOTINE 7 MG/24 HOURS TOPICAL PATCH TD SCH (10:46)
[2019-10-25] MEDS: MELATONIN 5 MG TABLETS PO SCH (22:06)
[2019-10-25] MEDS: THIAMINE HCL 100 MG TABLET (FP) PO SCH (22:06)
[2019-10-26] MEDS: chlordiazePOXIDE HCL 25 MG CAPSULE PO SCH ×2 (05:56→10:17)
[2019-10-26] MEDS: hydrOXYzine PAMOATE 25 MG CAPSULE (FP) PO SCH ×2 (05:56→10:17)
[2019-10-26] MEDS: TAMSULOSIN HCL 0.4 MG CAP PO SCH (09:17)
[2019-10-26 09:27] VITALS: BP 129/80; PULSE 64; TEMP 97
[2019-10-26] MEDS ORDERED: METHADONE HCL 10 MG TABLET (FOR DETOX USE ONLY) PO ONE (10:00)
[2019-10-26] MEDS: PRENATAL VITAMINS W/ FOLIC ACID TABLET (FP) PO SCH (10:16)
[2019-10-26] MEDS: NICOTINE 7 MG/24 HOURS TOPICAL PATCH TD SCH (10:17)
[2019-10-26] MEDS: LISINOPRIL 20 MG TABLET (FP) PO SCH (10:17)
--- NOTE | 2019-10-26 12:06 | PN ---
S CIWA - CIWA Score Nausea/Vomitin-Mild Nausea/No Vomiting Muscle Tremors: 2 Anxiety: 2 Agitation: 0-Normal Activity Paroxysmal Sweats: 2 Orientation: 0-Oriented Tacttile Disturbances: 0-None Auditory Disturbances: 0-None Visual Disturbances: 0-None Headache: 0-None Present CIWA-Ar Total Score: 7 BHS COWS - Scale Resting Pulse: 0= AK 80 or Below Sweatin= Chills/Flushing Restless Observation: 0= Sits Still Pupil Size: 0= Normal to Room Light Bone or Joint Aches: 1= Mild Discomfort Runny Nose/ Eye Tearin= None GI Upset > 30mins: 2= Nausea/Diarrhea Tremor Observation of Outstretched Hands: 2= Slight Tremor Visible Yawning Observation: 0= None Anxiety or Irritability: 1=Feels Anxious/Irritable Goose Flesh Skin: 0=Smooth Skin COWS Score: 7 S Progress Note (SOAP) Subjective: 64 years old male dmitted on 10/24/19 for alcohol and opiate withdrawal sx managment treating with librium and methadone detox regiment tremor general body aches restlessness anxiety Objective: 10/26/19 12:08 Vital Signs Temperature 97 F L 10/26/19 08:59 Pulse Rate 64 10/26/19 08:59 Respiratory Rate 17 10/26/19 08:59 Blood Pressure 129/80 10/26/19 08:59 O2 Sat by Pulse Oximetry (%) 95 10/26/19 06:29 Laboratory Last Values WBC 4.1 K/mm3 (4.0-10.0) 10/24/19 10:15 RBC 4.06 M/mm3 (4.00-5.60) 10/24/19 10:15 Hgb 13.0 GM/dL (11.7-16.9) 10/24/19 10:15 Hct 38.8 % (35.4-49) 10/24/19 10:15 MCV 95.6 fl (80-96) 10/24/19 10:15 MCH 32.1 pg (25.7-33.7) 10/24/19 10:15 MCHC 33.5 g/dl (32.0-35.9) 10/24/19 10:15 RDW 12.9 % (11.9-15.9) 10/24/19 10:15 Plt Count 122 K/MM3 (134-434) L 10/24/19 10:15 MPV 9.3 fl (7.5-11.1) 10/24/19 10:15 Sodium 144 mmol/L (136-145) 10/24/19 10:15 Potassium 3.9 mmol/L (3.5-5.1) 10/24/19 10:15 Chloride 109 mmol/L (98-107) H 10/24/19 10:15 Carbon Dioxide 29 mmol/L (21-32) 10/24/19 10:15 Anion Gap 6 MMOL/L (8-16) L 10/24/19 10:15 BUN 17.6 mg/dL (7-18) 10/24/19 10:15 Creatinine 0.7 mg/dL (0.55-1.3) 10/24/19 10:15 Est GFR (CKD-EPI)AfAm 116.40 10/24/19 10:15 Est GFR (CKD-EPI)NonAf 100.43 10/24/19 10:15 Random Glucose 92 mg/dL (74-106) 10/24/19 10:15 Calcium 8.9 mg/dL (8.5-10.1) 10/24/19 10:15 Total Bilirubin 0.6 mg/dL (0.2-1) 10/24/19 10:15 AST 18 U/L (15-37) 10/24/19 10:15 ALT 21 U/L (13-61) 10/24/19 10:15 Alkaline Phosphatase 111 U/L (45-117) 10/24/19 10:15 Total Protein 7.3 g/dl (6.4-8.2) 10/24/19 10:15 Albumin 3.5 g/dl (3.4-5.0) 10/24/19 10:15 RPR Titer Nonreactive (NONREACTIVE) 10/24/19 10:15 lab noted Assessment: 10/26/19 12:08 alcohol and opiate withdrawal Plan: librium and methadone regiment
--- NOTE | 2019-10-26 12:56 | DS ---
[facility] Detox Discharge Summary Admission Date: 10/24/19 Discharge Date: 10/26/19 - History Present History: Alcohol Dependence, Opioid Dependence Additional Comments: Others' Prescriptions Patient Name: Josh Gibson Date: 1955 Address: [address] [place] [address] Sex: Female Rx Written Rx Dispensed Drug Quantity Days Supply Prescriber Name Payment Method Dispenser suboxone 8 mg-2 mg sl film 42 7 Flores Em MD Insurance [facility] suboxone 8 mg-2 mg sl film 21 7 Flores Em MD Insurance [facility] suboxone 8 mg-2 mg sl film 21 7 Flores Em MD Insurance [facility] suboxone 8 mg-2 mg sl film 21 7 Flores Em MD Insurance [facility] suboxone 8 mg-2 mg sl film 21 7 Flores Em MD [facility] suboxone 8 mg-2 mg sl film 21 7 Flores Em MD [facility] suboxone 8 mg-2 mg sl film 21 7 Flores Em MD Insurance [facility] suboxone 8 mg-2 mg sl film 21 7 Flores Em MD Insurance [facility] buprenorphine-naloxone 8-2 mg sl film 21 7 Sydney Gordon MD Insurance [facility] buprenorphine-naloxone 8-2 mg sl film 10 4 Flores Em MD Insurance [facility] buprenorphine-naloxone 8-2 mg sl film 42 14 Flores Em MD Insurance [facility] buprenorphine-naloxone 8-2 mg sl film 42 14 Flores Em MD Insurance [facility] buprenorphine-naloxone 8-2 mg sl film 21 7 Flores Em MD Insurance [facility] buprenorphine-naloxone 8-2 mg sl film 45 15 Diana Perez MD Insurance [facility] buprenorphine-naloxone 8-2 mg sl film 45 15 RingsTiffanie clarke MD Insurance [facility] buprenorphine-naloxone 8-2 mg sl film 45 15 Diana Perez MD Insurance [facility] buprenorphine-naloxone 8-2 mg sl film 45 15 Diana Perez MD Insurance [facility] buprenorphine-naloxone 8-2 mg sl film 45 15 RingsFlores clarke MD Insurance [facility] buprenorphine-naloxone 8-2 mg sl film 45 15 Flores Em MD Insurance [facility] buprenorphine-naloxone 8-2 mg sl film 90 30 RingsFlores clarke MD Insurance [facility] buprenorphine-naloxone 8-2 mg sl film 90 30 Flores mE MD Insurance [facility] buprenorphine-naloxone 8-2 mg sl film 90 30 RingsFolres clarke MD Insurance [facility] buprenorphine-naloxone 8-2 mg sl film 90 30 RingsFlores clarke MD Insurance [facility] buprenorphine-naloxone 8-2 mg sl film 90 30 RingsFlores clarke MD Insurance [facility] 64 years old male admitted on 10/24/19 for alcohol and opiate withdrawal sxs management treated with librium and methadone detox regiment feeling better today prefers to go home with his dogs and continue soboxone maintenance program positive urine suboxone toxicity screen alert oriented x 3 speech clearly and coherently ambulating steady gait respiratory clear lung bilaterally on auscultation extremities full range of motion skin warm and dry Mr Gibson received methadone 25 mg on 10/24 and 20 mg on 10/23 understands not to take suboxone today that he has 42 films of suboxone at home Pertinent Past History: time for discharge 44 minutes - Physical Exam Results Vital Signs: Vital Signs Temperature 97 F L 10/26/19 08:59 Pulse Rate 64 10/26/19 08:59 Respiratory Rate 17 10/26/19 08:59 Blood Pressure 129/80 10/26/19 08:59 O2 Sat by Pulse Oximetry (%) 95 10/26/19 06:29 Pertinent Admission Physical Exam Findings: alcohol withdrawal Vital Signs Temperature 97 F L 10/26/19 08:59 Pulse Rate 64 10/26/19 08:59 Respiratory Rate 17 10/26/19 08:59 Blood Pressure 129/80 10/26/19 08:59 O2 Sat by Pulse Oximetry (%) 95 10/26/19 06:29 Laboratory Last Values WBC 4.1 K/mm3 (4.0-10.0) 10/24/19 10:15 RBC 4.06 M/mm3 (4.00-5.60) 10/24/19 10:15 Hgb 13.0 GM/dL (11.7-16.9) 10/24/19 10:15 Hct 38.8 % (35.4-49) 10/24/19 10:15 MCV 95.6 fl (80-96) 10/24/19 10:15 MCH 32.1 pg (25.7-33.7) 10/24/19 10:15 MCHC 33.5 g/dl (32.0-35.9) 10/24/19 10:15 RDW 12.9 % (11.9-15.9) 10/24/19 10:15 Plt Count 122 K/MM3 (134-434) L 10/24/19 10:15 MPV 9.3 fl (7.5-11.1) 10/24/19 10:15 Sodium 144 mmol/L (136-145) 10/24/19 10:15 Potassium 3.9 mmol/L (3.5-5.1) 10/24/19 10:15 Chloride 109 mmol/L (98-107) H 10/24/19 10:15 Carbon Dioxide 29 mmol/L (21-32) 10/24/19 10:15 Anion Gap 6 MMOL/L (8-16) L 10/24/19 10:15 BUN 17.6 mg/dL (7-18) 10/24/19 10:15 Creatinine 0.7 mg/dL (0.55-1.3) 10/24/19 10:15 Est GFR (CKD-EPI)AfAm 116.40 10/24/19 10:15 Est GFR (CKD-EPI)NonAf 100.43 10/24/19 10:15 Random Glucose 92 mg/dL (74-106) 10/24/19 10:15 Calcium 8.9 mg/dL (8.5-10.1) 10/24/19 10:15 Total Bilirubin 0.6 mg/dL (0.2-1) 10/24/19 10:15 AST 18 U/L (15-37) 10/24/19 10:15 ALT 21 U/L (13-61) 10/24/19 10:15 Alkaline Phosphatase 111 U/L (45-117) 10/24/19 10:15 Total Protein 7.3 g/dl (6.4-8.2) 10/24/19 10:15 Albumin 3.5 g/dl (3.4-5.0) 10/24/19 10:15 RPR Titer Nonreactive (NONREACTIVE) 10/24/19 10:15 lab noted - Treatment Hospital Course: Detox Protocol Followed, Detoxed Safely, Responded well, Discharged Condition Good, Rehab Referral Accepted Patient has Accepted a Rehab Referral to: soboxone maintenance program - Medication Discharge Medications: Ambulatory Orders Buprenorphine/Naloxone [Suboxone 8Mg/2Mg Sl Film -] 1 each SL BID 07/26/19 Lisinopril 20 mg PO DAILY 07/26/19 Tamsulosin HCl [Flomax -] 0.4 mg PO DAILY 07/26/19 - Diagnosis (1) Encounter for monitoring Suboxone maintenance therapy Current Visit: Yes Status: Chronic (2) Alcohol dependence with withdrawal, uncomplicated Current Visit: Yes Status: Acute (3) Nicotine dependence Current Visit: Yes Status: Acute Qualifiers: Nicotine product type: cigarettes Substance use status: in withdrawal Qualified Code(s): F17.213 - Nicotine dependence, cigarettes, with withdrawal (4) BPH (benign prostatic hyperplasia) Current Visit: Yes Status: Chronic Qualifiers: Lower urinary tract symptom presence: symptoms present Lower urinary tract symptom detail: nocturia Qualified Code(s): N40.1 - Benign prostatic hyperplasia with lower urinary tract symptoms; R35.1 - Nocturia (5) HTN (hypertension) Current Visit: Yes Status: Chronic Qualifiers: Hypertension type: essential hypertension Qualified Code(s): I10 - Essential (primary) hypertension (6) Hepatitis C virus infection cured after antiviral drug therapy Current Visit: Yes Status: Chronic - AMA Did Patient Leave Against Medical Advice: No CIWA Score - CIWA Score Nausea/Vomitin-Mild Nausea/No Vomiting Muscle Tremors: 2 Anxiety: 1-Mildly Anxious Agitation: 0-Normal Activity Paroxysmal Sweats: 1-Minimal Palms Moist Orientation: 0-Oriented Tacttile Disturbances: 0-None Auditory Disturbances: 0-None Visual Disturbances: 0-None Headache: 0-None Present CIWA-Ar Total Score: 5 COWS (PN) - Opiate Withdrawal Resting Pulse: 0= [place] 80 or Below Sweatin= No chills or Flushing Restless Observation: 0= Sits Still Pupil Size: 0= Normal to Room Light Bone or Joint Aches: 1= Mild Discomfort Runny Nose/ Eye Tearin= None GI Upset > 30mins: 1= Stomach Cramp Tremor Observation of Outstretched Hands: 1= Tremor [place], Not Seen Yawning Observation: 0= None Anxiety or Irritability: 1=Feels Anxious/Irritable Goose Flesh Skin: 0=Smooth Skin COWS Score: 4
[2019-10-27] MEDS ORDERED: chlordiazePOXIDE HCL 10 MG CAPSULE PO PRN
[2019-10-27] MEDS ORDERED: chlordiazePOXIDE HCL 10 MG CAPSULE PO SCH (05:00)
[2019-10-27] MEDS ORDERED: METHADONE (DETOX) 10 MG, METHADONE (DETOX) 5 MG PO ONE (10:00)
[2019-10-28] MEDS ORDERED: chlordiazePOXIDE HCL 10 MG CAPSULE PO SCH (05:00)
[2019-10-28] MEDS ORDERED: METHADONE HCL 10 MG TABLET (FOR DETOX USE ONLY) PO ONE (10:00)
[2019-10-29] MEDS ORDERED: chlordiazePOXIDE HCL 10 MG CAPSULE PO ONE (05:00)
[2019-10-29] MEDS ORDERED: METHADONE HCL 5 MG TABLET (FOR DETOX USE ONLY) PO ONE (06:00)
== END 2019-10-26 13:09 | disposition home or self-care (01) | DRG 897 ==
LOC: YASAS 08:02 → Y3N 10:01
PROVIDERS: ADMIT Allergy & Immunology; ATTEND Allergy & Immunology
PROC: HZ2ZZZZ Detoxification Services for Substance Abuse Treatment (ICD-10-PCS; principal; 2019-10-24)
DX: F10.230 Alcohol dependence with withdrawal, uncomplicated (principal); F11.23 Opioid dependence with withdrawal; F17.210 Nicotine dependence, cigarettes, uncomplicated; I10 Essential (primary) hypertension; E78.00 Pure hypercholesterolemia, unspecified; N40.1 Benign prostatic hyperplasia with lower urinary tract symptoms; R35.1 Nocturia; Z86.69 Personal history of other diseases of the nervous system and sense organs; Z86.19 Personal history of other infectious and parasitic diseases; Z51.81 Encounter for therapeutic drug level monitoring; Z91.018 Allergy to other foods
CPT/HCPCS: 36415; 80053; 85027; 86593; Q0162